=== PATIENT | female | born 1940 | race Caucasian/White ===

== ENCOUNTER → 2016-04-06 | Outpatient (CLI) | payer MEDICARE, OTHER ==
[~2016-04-06] MED LIST: ASP81TEC; DIPH25TA82; FENO134C PO; IBP200T PO; LVT.025T PO; MELA10TA PO; MTP25TSR; OMEP40CA36 PO; OXB5T PO; SIMV80TA3; ZOLP10TA5 PO
--- NOTE | 2016-04-06 13:48 | Diagnostic Imaging Report ---
CLINICAL INDICATION: Patient has been having neck problems for years but has gotten worse over the last year. EXAM: X-ray of the cervical spine, 3 views. COMPARISON: None. FINDINGS: There is no evidence of acute fracture or dislocation. There are hypertrophic anterior spurs which are worse at the C5-C6 level. There is also moderate loss of intervertebral disc height at the C5-C6 level. There is bilateral facet arthropathy. There is severe joint space narrowing involving the left C1-C2 lateral mass articulation region seen on the open-mouth view. There is no prevertebral soft tissue thickening. IMPRESSION: There is multilevel cervical spine degenerative disc disease which is worse at the C5-C6 level and left side of the C1-C2 articulation regions. An MRI of the cervical spine would better evaluate for disc disease. Dictated by: Dictated on workstation # [id number]
== END ==
LOC: RAD 10:19
PROVIDERS: ATTEND Chiropractor
DX: M54.2 Cervicalgia (principal); R29.3 Abnormal posture
CPT/HCPCS: 72040

== ENCOUNTER → 2017-04-20 | Outpatient (CLI) | payer MEDICARE, OTHER ==
--- NOTE | 2017-04-20 14:01 | Diagnostic Imaging Report ---
PROCEDURE: MR imaging cervical spine without contrast. TECHNIQUE: Multiplanar, multisequence MR imaging of the cervical spine was performed without contrast. INDICATION: Left-sided neck pain. COMPARISON: No prior MRI study is available for comparison. FINDINGS: Curvature and alignment of the cervical spine is normal. The vertebral body marrow signal is normal. No geographic marrow lesion is identified. There is generalized disc desiccation. There is loss of disc space narrowing at C5-C6 and C6-C7 levels compatible with degenerative disc disease. The cervical spinal cord demonstrates homogeneous signal intensity and normal morphology. C2-C3: No central canal or neuroforaminal stenosis is identified. C3-C4: Unremarkable. C4-C5: Unremarkable. C5-C6: Uncovertebral joint degenerative change is present. This appears to result in moderate left neuroforaminal narrowing and mild right neuroforaminal narrowing. Central canal is patent. C6-C7: Unremarkable. C7-T1: Unremarkable. IMPRESSION: Lower cervical spondylosis. This does result in bilateral neuroforaminal narrowing at the C5-C6 level due to uncovertebral joint degenerative change. No central canal stenosis is seen. Dictated by: Dictated on workstation # [id number]
== END ==
LOC: RAD 11:12
PROVIDERS: ATTEND Family Medicine
DX: M48.02 Spinal stenosis, cervical region (principal); M47.812 Spondylosis without myelopathy or radiculopathy, cervical region
CPT/HCPCS: 72141

== ENCOUNTER 2017-06-01 15:00 | Outpatient (RCR) | payer MEDICARE, OTHER | END 2017-06-01 16:23 | disposition home or self-care (01) | PROVIDERS: ATTEND Family Medicine | DX: M50.322 Other cervical disc degeneration at C5-C6 level (principal) ==

== ENCOUNTER 2017-11-30 11:41 | Outpatient (RCR) | payer MEDICARE, OTHER | END 2017-12-04 13:21 | disposition home or self-care (01) | PROVIDERS: ATTEND Nurse Practitioner | DX: M54.2 Cervicalgia (principal) ==

== ENCOUNTER 2017-12-07 08:02 | Outpatient (RCR) | payer MEDICARE, OTHER | END 2018-03-05 15:26 | disposition home or self-care (01) | PROVIDERS: ATTEND Nurse Practitioner | DX: M54.2 Cervicalgia (principal) ==

== ENCOUNTER → 2020-07-23 | Outpatient (CLI) | payer MEDICARE, OTHER ==
--- NOTE | 2020-07-23 17:19 | Diagnostic Imaging Report ---
EXAMINATION: CT abdomen and pelvis without contrast. TECHNIQUE: Multiple contiguous axial images were obtained through the abdomen and pelvis without the use of intravenous contrast. All CT scans use one or more of the following dose optimizing techniques: automated exposure control, MA and/or KvP adjustment based on patient size and exam type or iterative reconstruction. HISTORY: Hematuria COMPARISON: None available. FINDINGS: Limited views of the lower thorax show moderate-sized hiatal hernia and coronary artery calcifications. The liver is normal without focal lesion. There is no biliary ductal dilation. Gallbladder surgically absent. Pancreas is normal. Spleen is normal. Adrenal glands are normal. There is a large duodenal diverticulum. The kidneys are normal. There is no hydronephrosis. Urinary bladder is normal. No renal or ureteral stones are seen. Visualized bowel is normal in caliber without obstruction or inflammation. There has been a sigmoid colon resection. The appendix is normal. No free fluid or air. No abdominal or pelvic lymphadenopathy. Aorta is normal in caliber without aneurysm. There are no suspicious osseus lesions. IMPRESSION: 1. No renal or ureteral stones. Dictated by: Dictated on workstation # [id number]
== END ==
LOC: RAD 15:57
PROVIDERS: ATTEND Urology
DX: R31.0 Gross hematuria (principal)
CPT/HCPCS: 74176

== ENCOUNTER → 2020-08-19 | Outpatient (CLI) | payer MEDICARE ==
--- NOTE | 2020-08-19 16:47 | Diagnostic Imaging Report ---
INDICATION: Left hip pain. EXAMINATION: Two views of the left hip. FINDINGS: No fracture, dislocation or other acute abnormality. IMPRESSION: Negative left hip. Dictated by: Dictated on workstation # [id number]
== END ==
LOC: RAD 14:06
PROVIDERS: ATTEND Family Medicine
DX: M25.552 Pain in left hip (principal)
CPT/HCPCS: 73502

== ENCOUNTER 2020-11-13 13:00 | Outpatient (RCR) | payer MEDICARE | END 2021-01-07 | disposition home or self-care (01) | PROVIDERS: ATTEND Family Medicine | DX: M25.552 Pain in left hip (principal); M54.9 Dorsalgia, unspecified; I10 Essential (primary) hypertension ==

== ENCOUNTER → 2021-08-10 | Outpatient (CLI) | payer MEDICARE ==
--- NOTE | 2021-08-10 14:39 | Diagnostic Imaging Report ---
Indication: Left hip pain. Time of Exam: 1:55 PM 2 views left hip show normal femoral acetabular alignment. Joint space is fairly well-maintained. The femoral head and neck are intact. No fractures are seen. Left-sided rami are intact. IMPRESSION: No acute bony abnormality is detected. Dictated by: Dictated on workstation # [id number]
== END ==
LOC: ORTHO 13:44
PROVIDERS: ATTEND Orthopaedic Surgery
DX: M25.552 Pain in left hip (principal)
CPT/HCPCS: 73502; G0463; 99203

== ENCOUNTER 2021-12-19 10:35 | Emergency (ER) | payer MEDICARE ==
[~2021-12-19] VITALS: Ht 165.1 cm; Wt 68.0 kg
--- NOTE | 2021-12-19 11:13 | ED Fall/Injury ---
General Stated Complaint: FALL - L WRIST/ARM PAIN - L SIDE PAIN Source: patient Exam Limitations: no limitations History of Present Illness Date Seen by Provider: Dec 19, 2021 Time Seen by Provider: 11:10 Initial Comments 81 y/o female presents this morning with c/o left rib, wrist, and knee pain following a fall. Pt states she tripped over a dog leash last night, fell and landed on her left side. She denies LOC or hitting her head. She has been able to ambulate on the knee, but has noticed some bruising. She has not taken anything at home for pain. She denies dizziness, lightheadedness, syncope, SOA, weakness, numbness, hip pain, back pain, or neck pain. She denies any other injuries. Occurred: yesterday Severity: moderate Injuries/Pain Location: upper extremity (left wrist), chest (left ribs), lower extremity (left knee) Context: tripped Loss of Consciousness: no loss of consciousness Modifying Factors: Improves With Immobilization; Worse With Movement Associated Symptoms (Fall): Denies Symptoms Allergies and Home Medications Allergies Coded Allergies: codeine (Unverified Allergy, Mild, CAN TAKE MORPHINE, 07/03/07) Patient Home Medication List Home Medication List Reviewed: Yes Aspirin (Aspirin Ec 81 Mg) 81 Mg Tabec, (Reported) Entered as Reported by: MANDO ERICKSON on 07/08/092022 Fenofibrate,Micronized (Fenofibrate 134 Mg) 134 Mg Capsule, 1 EACH PO DAILY, (Reported) Entered as Reported by: PUMA CHUNG on 09/19/111409 Ibuprofen (Motrin) 200 Mg Tab, 200 MG PO Q4H PRN, (Reported) Entered as Reported by: PUMA CHUNG on 09/19/111409 Levothyroxine Sodium (Levothroid) 25 Mcg Tab, 75 MCG PO DAILY, (Reported) Entered as Reported by: PUMA CHUNG on 09/19/111409 Melatonin (Melatonin) 10 Mg Tab.mphase, 10 MG PO HS, (Reported) Entered as Reported by: PUMA CHUNG on 09/19/111409 Metoprolol Succinate (Toprol Xl) 25 Mg Tab, (Reported) Entered as Reported by: MANDO ERICKSON on 07/08/092019 Omeprazole (Omeprazole) 40 Mg Capsule.dr, 40 MG PO DAILY, (Reported) Entered as Reported by: PUMA CHUNG on 09/19/111409 Oxybutynin Chloride (Ditropan) 5 Mg Tab, 5 MG PO DAILY, (Reported) Entered as Reported by: PUMA CHUNG on 09/19/111409 Simvastatin (Simvastatin) 80 Mg Tablet, (Reported) Entered as Reported by: MANDO ERICKSON on 07/08/092018 Zolpidem Tartrate (Zolpidem Tartrate) 10 Mg Tablet, 10 MG PO DAILY, (Reported) Entered as Reported by: PUMA CHUNG on 09/19/111409 Review of Systems Review of Systems Constitutional: No dizziness, No malaise, No weakness Eyes: Denies Blurred Vision, Denies Vision Changes Ears, Nose, Mouth, Throat: denies nose pain, denies epistaxis, denies loose teeth Respiratory: No cough, No dyspnea on exertion, No orthopnea, No short of breath Gastrointestinal: No abdominal pain, No heartburn, No nausea, No vomiting Musculoskeletal: No back pain; joint pain, joint swelling; No muscle weakness, No neck pain Skin: no symptoms reported Psychiatric/Neurological: Denies Headache, Denies Numbness, Denies Paresthesia, Denies Seizure, Denies Tingling, Denies Tremors, Denies Weakness Past Bwwirat-Jxdigt-Sqicsg Hx Patient Social History Tobacco Use?: No Substance use?: No Alcohol Use?: No Past Medical History Reproductive Disorders: No Physical Exam Vital Signs Vital Signs - First Documented 12/19/21 10:48 Temp 37.1 Pulse 80 Resp 18 B/P (MAP) 154/74 (100) Pulse Ox 97 O2 Delivery Room Air Capillary Refill : Height, Weight, BMI Height: 5'5.00" Weight: 168lbs. oz. 76.880431qp; BMI Method: General Appearance: WD/WN, no apparent distress HEENT: PERRL/EOMI, normal ENT inspection Neck: non-tender, full range of motion, supple, normal inspection Cardiovascular: normal peripheral pulses, regular rate, rhythm, no edema Respiratory: lungs clear, normal breath sounds, no respiratory distress, no accessory muscle use, other (left lateral ribs TTP) Peripheral Pulses: 2+ Dorsalis Pedis (R), 2+ Left Dors-Pedis (L), 2+ Radial Pulses (R), 2+ Radial Pulses (L) Gastrointestinal: normal bowel sounds, non tender, no organomegaly Back: normal inspection, no CVA tenderness, no vertebral tenderness Extremities: normal capillary refill, other (radial aspect of left wrist is TTP, there is circumferential swelling of the wrist noted; left patella is TTP and there is ecchymosis present, mild swelling of anterior knee) Neurologic/Psychiatric: fsr II-XII nml as tested, no motor/sensory deficits, alert, normal mood/affect, oriented x 3 Skin: normal color, warm/dry Progress/Results/Core Measures Results/Orders My Orders Orders - HERLINDA ALY INSPECTOR Ribs/Unilateral With Chest (12/19/21 11:13) Wrist, Left, 3 Views Or More (12/19/21 11:13) Knee, Left, 3 Views (12/19/21 11:13) Acetaminophen Tablet/Caplet (Tylenol T (12/19/21 11:15) Ortho Glass (12/19/21 12:13) Medications Given in ED Current Medications Medications Dose Ordered Sig/Aisha Route Start Time Stop Time Status Last Admin Dose Admin Acetaminophen 650 mg ONCE ONCE PO 12/19/21 11:15 12/19/21 11:16 DC 12/19/21 12:08 650 MG Vital Signs/I&O 12/19/21 12/19/21 10:48 13:01 Temp 37.1 Pulse 80 76 Resp 18 16 B/P (MAP) 154/74 (100) 142/74 Pulse Ox 97 98 O2 Delivery Room Air Progress Progress Note : Progress Note Sugar tong ortho glass splint applied by RN. Initial ECG Impression Date: Dec 19, 2021 Departure Impression Primary Impression: Distal radius fracture, left Additional Impressions: Fall Contusion of rib on left side Contusion of knee, left Disposition: 01 HOME, SELF-CARE Condition: Stable Departure-Patient Inst. Decision time for Depature: 12:20 Referrals: LENI TURNER DO (PCP/Family) Primary Care Physician SUZANNE GIMENEZ MD Patient Instructions: Wrist Fracture (DC), Bruised Rib (DC), Preventing Falls in Older Adults Add. Discharge Instructions: For wrist fracture: Keep splint on until your appointment with orthopaedic specialist. Do not get the splint wet. Tylenol and motrin as needed for pain. Ice as needed. Elevate the wrist as much as possible. Call Dr Gimenez's office Monday morning for appointment. For rib injury: Coughing and deep breathing exercises hourly. Tylenol and motrin as needed. Ice as needed. Sleeping in recliner may help with discomfort HERLINDA ALY APRN Dec 19, 2021 11:13
[2021-12-19] MEDS ORDERED: ACETAMINOPHEN 325 MG TABLET PO ONE (11:15)
--- NOTE | 2021-12-19 12:05 | Diagnostic Imaging Report ---
CLINICAL HISTORY: Fall. Left wrist pain. COMPARISON: None. TECHNIQUE: 3 views of the left wrist. FINDINGS: A minimally displaced fracture seen involving the distal left radius. No obvious extension into the left radiocarpal joint. No fracture seen in the distal left ulna. The carpal bones of the left wrist are well aligned. IMPRESSION: 1. Minimally displaced fracture involving the distal left radius without evidence of intra-articular extension. Dictated by: Dictated on workstation # [id number]
--- NOTE | 2021-12-19 12:07 | Diagnostic Imaging Report ---
EXAMINATION: PA chest, single view. Left rib radiographs, 3 views. COMPARISON: None. HISTORY: 81-year-old female, left-sided rib pain status post fall. FINDINGS: There is cervical spine hardware. There is a large hiatal hernia. The heart size and mediastinal contours are otherwise unremarkable. There is no identified pneumothorax. There is no large pleural effusion. There is no identified focal airspace consolidation. There are right upper quadrant surgical clips. There is no identified displaced left-sided rib fracture or otherwise identified fracture. IMPRESSION: 1. No identified left rib fracture or otherwise identified fracture. 2. Large hiatal hernia. 3. No identified acute cardiopulmonary abnormality. Dictated by: Dictated on workstation # [id number]
--- NOTE | 2021-12-19 12:08 | Diagnostic Imaging Report ---
EXAMINATION: Left knee radiographs, 3 views. COMPARISON: None. HISTORY: 81-year-old female, left knee pain. Fall. FINDINGS: There is no identified acute fracture. There is no knee joint effusion. The joint spaces appear fairly well-preserved. IMPRESSION: No identified acute bony abnormality of the left knee. Dictated by: Dictated on workstation # [id number]
[2021-12-19 13:01] VITALS: BP 142/74
== END 2021-12-19 13:01 | disposition home or self-care (01) ==
LOC: EDUNIT# 10:35 → ER 10:36
DX: S52.502A Unspecified fracture of the lower end of left radius, initial encounter for closed fracture (principal); S80.02XA Contusion of left knee, initial encounter; S20.20XA Contusion of thorax, unspecified, initial encounter; W01.0XXA Fall on same level from slipping, tripping and stumbling without subsequent striking against object, initial encounter
CPT/HCPCS: 29125; 71101; 73110; 73562; 99284; A4565; L2580

== ENCOUNTER → 2021-12-23 | Outpatient (CLI) | payer MEDICARE | LOC: ORTHO 11:15 | PROVIDERS: ATTEND Orthopaedic Surgery | DX: S52.532A Colles' fracture of left radius, initial encounter for closed fracture (principal); X58.XXXA Exposure to other specified factors, initial encounter | CPT/HCPCS: 99213 ==

== ENCOUNTER → 2022-01-06 | Outpatient (CLI) | payer MEDICARE ==
--- NOTE | 2022-01-06 17:07 | Diagnostic Imaging Report ---
INDICATION: Follow-up orthopedic assessment, fracture, pain. COMPARISON: 12/19/2021 TECHNIQUE: Three radiographs of the left wrist dated 01/06/2022 FINDINGS: Previously noted distal radial fracture is again identified. Very minimal impaction is noted. Increasing sclerosis is noted at this location without significant periosteal reaction. No new fracture or dislocation. No destructive osseous process. Advanced degenerative changes involving the 1st CMC joint and STT joint. No suspicious radiopaque foreign body IMPRESSION: Minimally impacted distal radial fracture with resultant mild ulna positive configuration of the wrist. Impaction has slightly increased since the prior examination. Increasing sclerosis along the fracture plane likely relates to early healing though no significant dense osseous bridging or periosteal reaction is present. Recommend continued radiographic follow-up. No new acute osseous abnormality with advanced degenerative changes involving the lateral carpus. Dictated by: Dictated on workstation # [id number]
== END ==
LOC: ORTHO 10:49
PROVIDERS: ATTEND Orthopaedic Surgery
DX: Z47.89 Encounter for other orthopedic aftercare (principal); S52.532D Colles' fracture of left radius, subsequent encounter for closed fracture with routine healing; E78.00 Pure hypercholesterolemia, unspecified; I10 Essential (primary) hypertension; X58.XXXD Exposure to other specified factors, subsequent encounter
CPT/HCPCS: 73110; G0463; 99213

== ENCOUNTER → 2022-01-20 | Outpatient (CLI) | payer MEDICARE | LOC: ORTHO 10:25 | PROVIDERS: ATTEND Orthopaedic Surgery | DX: S52.539 Colles' fracture of unspecified radius (principal); E78.00 Pure hypercholesterolemia, unspecified; I10 Essential (primary) hypertension; X58.XXXD Exposure to other specified factors, subsequent encounter | CPT/HCPCS: 99213 ==

== ENCOUNTER → 2022-02-08 | Outpatient (CLI) | payer MEDICARE ==
--- NOTE | 2022-02-08 15:11 | Diagnostic Imaging Report ---
WRIST, LEFT, 3 VIEWS OR MORE INDICATION: Fracture follow-up COMPARISON: 01/06/2022 TECHNIQUE: 3 views of the left wrist FINDINGS: Distal radial fracture maintains anatomic alignment. There is no depression or dorsal angulation of the radial articular surface. Increased periosteal callus has developed around the distal radial fracture. Positive ulnar variance is present and may be posttraumatic in nature. Severe degenerative changes at the triscaphe and thumb CMC. IMPRESSION: 1. Partial healing of distal radial fracture. Dictated by: Dictated on workstation # [id number]
== END ==
LOC: ORTHO 09:22
PROVIDERS: ATTEND Orthopaedic Surgery
DX: Z47.89 Encounter for other orthopedic aftercare (principal); S52.532D Colles' fracture of left radius, subsequent encounter for closed fracture with routine healing; I10 Essential (primary) hypertension; E78.00 Pure hypercholesterolemia, unspecified; X58.XXXD Exposure to other specified factors, subsequent encounter
CPT/HCPCS: 73110; 99213

== ENCOUNTER → 2022-03-15 | Outpatient (CLI) | payer MEDICARE | LOC: ORTHO 09:55 | PROVIDERS: ATTEND Orthopaedic Surgery | DX: S52.532D Colles' fracture of left radius, subsequent encounter for closed fracture with routine healing (principal); E78.00 Pure hypercholesterolemia, unspecified; I10 Essential (primary) hypertension; X58.XXXD Exposure to other specified factors, subsequent encounter | CPT/HCPCS: 99213 ==

== ENCOUNTER → 2023-01-24 | Outpatient (CLI) | payer MEDICARE ==
--- NOTE | 2023-01-24 13:13 | Diagnostic Imaging Report ---
INDICATION: Postmenopausal screening COMPARISON: 08/29/2013 FINDINGS: AP Spine L1-L4: [BMD (g/cm2): 0.830] [T-Score: -3.1] [Z-Score: -1.4] [BMD Previous: 0.982] [BMD % Change: -15.5*] LT Hip Neck: [BMD (g/cm2): 0.838] [T-Score: -1.4] [Z-Score: 0.7] LT Hip Total: [BMD (g/cm2):0.864] [T-Score:-1.1] [Z-Score: 0.9] [BMD Previous: 0.920] [BMD % Change: -6.1*] RT Hip Neck: [BMD (g/cm2):0.850] [T-Score:-1.4] [Z-Score:0.8] RT Hip Total: [BMD (g/cm2):0.842] [T-score:-1.3] [Z-Score:0.7] [BMD Previous:0.949] [BMD % Change:-11.3*] *Indicates significant change from prior examination based on 95% confidence level. World Health Organization criteria for BMD interpretation classify patients as Normal (T-score at or above -1.0), Osteopenic (T-score between -1.0 and -2.5) or Osteoporotic (T-score at or below -2.5). LIMITATIONS AND MODIFICATION: None. FRACTURE RISK (FRAX SCORE): The ten year probability of (%): Major Osteoporotic Fracture: [24.0] Hip Fracture: [14.2] IMPRESSION: 1. Osteoporosis. 2. Bone mineral density has decreased by a statistically significant amount, as detailed above. 3. See below National Osteoporosis Foundation guidelines on when to potentially initiate pharmacologic therapy. Based on the National Osteoporosis Foundation Guidelines, pharmacologic treatment should be initiated in any of the following, unless clinical conditions suggest otherwise: * Any patient with prior fragility fracture of the hip or vertebrae. A spine fracture indicates 5X risk for subsequent spine fracture and 2X risk for subsequent hip fracture. * Osteoporosis (T-score <-2.5). * Postmenopausal women and men age 50 and older with low bone mass/osteopenia (T-score between -1.0 and -2.5) by DXA and 10-year major osteoporotic fracture greater than 20% or a 10-year probability of hip fracture greater than 3%. These fracture risks are supplied above in the FRAX score, if applicable. * Clinician judgement and/or patient preferences may indicate treatment for people with 10-year fracture probabilities above or below these levels. Dictated by: Dictated on workstation # [id number]
== END ==
LOC: RAD 09:50
PROVIDERS: ATTEND Family Medicine
DX: M81.0 Age-related osteoporosis without current pathological fracture (principal)
CPT/HCPCS: 77080

== ENCOUNTER 2023-02-01 08:29 | Outpatient (RCR) | payer MEDICARE | END 2023-02-02 | PROVIDERS: ATTEND Family Medicine | DX: M54.16 Radiculopathy, lumbar region (principal); I10 Essential (primary) hypertension ==